=== PATIENT | female | born 1970 | race Caucasian/White ===

== ENCOUNTER 2021-02-05 05:12 | Emergency (ER) | payer BC ==
[~2021-02-05] VITALS: Ht 162.6 cm; Wt 68.0 kg
--- NOTE | 2021-02-05 05:20 | NUR ---
PT BIBSELF C/O SOB S/P WAKING UP IN A PANIC. PT AAOX4 BREATHING EVENLY AND UNLABORED. PT STATES "I HAD A SORE THROAT X2DAYS AND WENT TO THE URGENT CARE. I WOKE UP TODAY PANICKED BECAUSE I FELT I COULDNT BREATHE". PT SKIN WARM, DRY AND INTACT. UPON ASSESSMENT PT HAS PRODUCTIVE COUGH. PT ATTACHED TO MONITOR AND POX. PT GIVEN BLANKET AND CALL LIGHT WITHIN REACH
--- NOTE | 2021-02-05 05:27 | NUR ---
XRAY AT BEDSIDE
--- NOTE | 2021-02-05 05:36 | NUR ---
Patient discharged to home in stable condition. Written and verbal after care instructions given. Patient verbalizes understanding of instruction. Pt ambulatory with a steady gait
[2021-02-05 05:41] VITALS: BP 118/70
== END 2021-02-05 05:36 | disposition home or self-care (01) ==
LOC: EDUNIT# 05:12 → ER 05:14
DX: R09.82 Postnasal drip (principal); J45.909 Unspecified asthma, uncomplicated; Z90.89 Acquired absence of other organs; Z88.5 Allergy status to narcotic agent; Z60.2 Problems related to living alone
CPT/HCPCS: 71045-TC